=== PATIENT | male | born 1955 | race Caucasian/White ===

== ENCOUNTER 2018-02-27 10:12 | Emergency (ER) | payer OTHER ==
[~2018-02-27 10:12] MED LIST: Gadobenate Dimeglumine 529 MG/1 ML (20ML VIAL) ONE
[2018-02-27 11:34] LABS: #Basophils 0.1 thou/uL (0.0-0.2); #Lymphocytes 1.4 thou/uL (1.20-3.40); #Monocytes 0.7 thou/uL (0.11-0.59); #Neutrophils 9.5 thou/uL (1.40-6.50); %Basophils 0.6 % (0.0-1.0); %Eosinophils 0.1 % (0.0-10.0); %Monocytes 5.6 % (0.0-10.0); %Neutrophils 81.7 % (42.0-75.0); Hemoglobin 16.2 g/dL (14.0-18.0); INR-International Normal Ratio 1.1; Mean Corpuscular HGB CONC 34.1 g/dL (32.0-36.0); Mean Corpuscular Volume 79.2 fL (78.0-98.0); Mean Platelet Volume 7.4 fL (7.4-10.4); PTT 25.7 SEC (22.9-36.1); Platelet Count 261 thou/uL (130-400); Prothrombin Time 13.8 SEC (12.0-14.7); RBC Distribution Width 12.1 % (11.5-14.5); Red Blood Cell (RBC) Count 6.02 mill/uL (4.70-6.10); White Blood Cell (WBC) Count 11.6 thou/uL (4.8-10.8)
[2018-02-27 11:37] LABS: Anion Gap 19 mmol/L (10-20); BUN (Urea Nitrogen) 12 mg/dL (8.4-25.7); CRP (Inflammatory) 0.57 mg/dL (= or < 0.5); Calc. Creatinine Clearance 0 mL/min (70-130); Calcium 9.4 mg/dL (7.8-10.44); Carbon Dioxide 20 mmol/L (23-31); Chloride 102 mmol/L (98-107); Estimated GFR-MDRD Greater than 90; Glucose 138 mg/dL (80-115); Potassium 3.8 mmol/L (3.5-5.1); Sodium 137 mmol/L (136-145)
[2018-02-27 11:43] LABS: CKMB 0.8 ng/mL (0-6.6); Troponin I Less than 0.010 ng/mL (< 0.028)
--- NOTE | 2018-02-27 14:16 | MRI ---
MRI BRAIN WITH AND WITHOUT CONTRAST: Technique: Multiplanar, multisequential imaging of brain obtained following a cranial nerve protocol pre and post IV contrast. Indications: Left cranial nerve 6 palsy. FINDINGS: The cranial nerves are identified on the 3D acquisition. There is no evidence of mass. Cranial nerves appear symmetric. No abnormal enhancement identified. Cranial sinuses appear unremarkable and symmet clifford. Optic nerves appear unremarkable and symmetric. No evidence of restricted diffusion. No mass or edema. There are scattered white matter hyperintensities seen in the subcortical and periventricular white m atter of both cerebral hemispheres on FLAIR sequences. While these are nonspecific, findings are most consistent with chronic ischemic white matter changes in a patient of these age. No abnormal enhancement seen in the brain. The intracranial internal carotid arteries and proximal ce rebral arteries show flow voids. There is a mucous retention cyst in the floor of the right maxillary antrum measuring up to 2 cm. IMPRESSION: Unremarkable MRI of the brain and cranial nerves. POS: [facility]
== END 2018-02-27 15:23 | disposition home or self-care (01) ==
LOC: SCSER 10:12
DX: H93.3X2 Disorders of left acoustic nerve (principal); E11.9 Type 2 diabetes mellitus without complications; Z79.899 Other long term (current) drug therapy; Z79.4 Long term (current) use of insulin
CPT/HCPCS: 36415; 70553; 80048; 82553; 84484; 85025; 85610; 85652; 85730; 86140; 93005; A9579